=== PATIENT | female | born 1940 | race Caucasian/White ===

== ENCOUNTER 2022-07-13 17:46 | Emergency (ER) | payer MEDICARE, SELFPAY ==
[2022-07-13 18:03] VITALS: BP 137/68; PULSE 79; RESP 16; TEMP 38.4; O2SAT 96; BMI 19.1
--- NOTE | 2022-07-13 21:52 | XRR_ITS ---
PROCEDURE INFORMATION: Exam: XR Chest Exam date and time: 07/13/2022 11:36 PM Age: 81 years old Clinical indication: Fever TECHNIQUE: Imaging protocol: Radiologic exam of the chest. Views: 1 view. COMPARISON: No relevant prior studies available. FINDINGS: Lungs: There is no pulmonary venous congestion. Visualized portions of the lungs are clear. There is a small calcified granuloma at the left apex. There is a small calcified granuloma at the right lung base. Pleural spaces: Unremarkable. No pleural effusion. No pneumothorax. Heart/Mediastinum: Heart is within normal limits of size. Vasculature: There is atherosclerotic calcification of the aortic arch. Bones/joints: Unremarkable. XR/XR chest 1V portable [id number] IMPRESSION: No acute infiltrate.
[2022-07-13] MEDS: acetaminophen 325 mg Tablet 650 MG PO (22:35)
[2022-07-13 22:57] VITALS: BP 133/63; PULSE 76; RESP 17; O2SAT 98
[2022-07-13 23:01] LABS: Basophils % 0.5 %; Eosinophils % 0.2 %; Hematocrit 36.7 % (37.0-47.0); Lymphocytes # 1.3 10^3/uL (0.8-4.8); Lymphocytes % 20.9 %; Mean Corpuscular HGB Conc 32.7 g/dL (30.0-36.0); Mean Corpuscular Hemoglobin 29.6 pg (28.0-34.0); Mean Corpuscular Volume 90.6 fl (81-99); Mean Platelet Volume 9.6 fL (7.4-10.4); Monocytes # 0.7 10^3/uL (0.2-0.9); Monocytes % 11.8 %; Neutrophils # 4.03 10^3/uL (1.8-7.7); Neutrophils % 66.1 %; Nucleated Red Blood Cells % 0 %; Platelet Count 162 10^3/cmm (130-400); Red Blood Count 4.05 10^6/uL (4.1-5.3); Red Cell Distribution Width 14.1 % (12.1-15.1); White Blood Count 6.1 10^3/uL (4.0-10.0)
[2022-07-13 23:17] LABS: SARS Covid-2 Antigen negative (Negative)
[2022-07-13 23:34] LABS: Alanine Aminotransferase 13 U/L (0-33); Albumin Level 3.9 g/dL (3.5-5.2); Alkaline Phosphatase 41 U/L (35-105); Anion Gap 14.8 (5-19); Aspartate Amino Transferase 21 U/L (0-32); Blood Urea Nitrogen 13 mg/dL (8-23); Calcium 8.9 mg/dL (8.5-10.5); Carbon Dioxide 24 mmol/L (22-29); Chloride 97 mmol/L (98-107); Globulin 2.7 g/dL (1.3-4.6); Glucose 84 mg/dL (65-115); Osmolality Calculated 273 mOsm/kg (285-295); Potassium 3.8 mmol/L (3.5-5.1); Sodium 132 mmol/L (136-145); Total Bilirubin 0.2 mg/dL (0.15-1.2); Total Protein 6.6 g/dL (6.6-8.7)
[2022-07-13 23:44] LABS: Add Urine Culture? No; Add Urine Microscopic? YES; Bilirubin Urine Neg (Negative); Blood Urine Neg (Negative); Glucose Urine UA Norm (Normal); Ketones Urine 2+ (Negative); Leukocyte Esterase Urine Negative (Negative); Nitrate Urine Negative (Negative); Protein Urine 1+ (Negative); Specific Gravity, Urine 1.025 (1.005-1.030); Squamous Epithelial Cell Urine 0-4 /hpf (0-5); Urine Appearance Clear (CLEAR); Urine Color Yellow (Yellow); Urobilinogen Urine Neg (Negative); WBC Urine 0-4 /hpf (0-5); pH Urine 5 (5-7)
[2022-07-14] MEDS: doxycycline 100 mg Tablet PO (00:32)
[2022-07-14 00:35] VITALS: BP 104/47; PULSE 88; RESP 17; O2SAT 95
[2022-07-14 02:42] LABS: Adenovirus Not Detected (NOT DETECT); Chlamydia Pneumoniae Not Detected (NOT DETECT); Coronavirus 229E,HKU1,NL63,OC4 Not Detected (NOT DETECT); Human Metapneumovirus Not Detected (NOT DETECT); Human Rhinovirus/Enterovirus Not Detected (NOT DETECT); Influenza A Detected (NOT DETECT); Influenza A H1 Not Detected (NOT DETECT); Influenza A H1-2009 Detected (NOT DETECT); Influenza A H3 Not Detected (NOT DETECT); Influenza B Not Detected (NOT DETECT); Mycoplasma Pneumoniae Not Detected (NOT DETECT); Parainfluenza Virus Type 1 Not Detected (NOT DETECT); Parainfluenza Virus Type 2 Not Detected (NOT DETECT); Parainfluenza Virus Type 3 Not Detected (NOT DETECT); Parainfluenza Virus Type 4 Not Detected (NOT DETECT); Respiratory Syncytial Virus A Not Detected (NOT DETECT); Respiratory Syncytial Virus B Not Detected (NOT DETECT); SARS-COV-2 Not Detected (NOT DETECT)
--- NOTE | 2022-07-14 03:10 | W.ED.FEVER ---
HPI - Fever General: Chief Complaint: Fever Stated Complaint: low grade fever Time Seen by Provider: 07/13/22 22:33 Source: patient and family History of Present Illness: 81-year-old female with a fever starting last 24 hours. It is 101 here. She has a cough, that she noticed last night. She seems to believe the cough is related to waking up choking on my own spit a little bit . No vomiting. No aches. She notes that she feels improved from prior on my exam. MD elicited complaint: fever Onset (ago): hour(s) Context: other Relieving factors: nothing Associated symptoms: Reports cough, nasal congestion, rhinorrhea and short of breath; Deny abdominal pain, flank pain, chills, chest pain, confusion, diarrhea, extremity pain, headache(s), sore throat or vomiting Review of Systems Const: Reports: fever(s); Denies: chills or body aches ENMT: Reports: nasal congestion; Denies: throat pain Card: Denies: chest pain Resp: Reports: non-productive cough; Denies: dyspnea GI: Denies: abdominal pain, vomiting or diarrhea : Denies: flank pain Musc: Denies: extremity pain Neuro: Denies: headache(s) or confusion PFSH ED PFSH: Medical History (Updated 07/14/22 @ 00:10 by Biju Colon DO) Essential (primary) hypertension Family History Sister Cancer 2 sisters; mother, father, 1 brother Other Hypertension Social History Smoking and tobacco status: never smoked Alcohol intake: never Physical Exam Const: COMMON NORMALS: no acute distress GENERAL APPEARANCE: cooperative and frail appearing (Mildly); not ill appearing NUTRITIONAL APPEARANCE: thin HENMT: COMMON NORMALS: normocephalic, atraumatic and Normal external nose present HEAD & SCALP: normocephalic and atraumatic FACE & SINUS: normal facial exam and face symmetric NOSE: Normal external nose present Eye: COMMON NORMALS: Equal, round and reactive pupils present and EOMs intact bilaterally PUPIL: Yes Equal, round and reactive pupils present Neck/C-Spine: GENERAL: Yes trachea midline Chest: CHEST: Yes Symmetrical chest wall rise Resp: COMMON NORMALS: normal respiratory effort, No retractions, No use of accessory muscles and clear to auscultation bilaterally AUSCULTATION: clear to auscultation bilaterally Cardio: COMMON NORMALS: regular rate and regular rhythm RATE: regular rate RHYTHM: regular rhythm HEART SOUNDS: Murmur heart sound present GI: COMMON NORMALS: Normal to inspection, nondistended, normoactive bowel sounds present Extremity: COMMON NORMALS: no pedal edema Neuro: JAMIE COMA SCALE: document GCS findings Jamie coma scale eye opening: Spontaneous Jamie coma scale verbal response: Orientated Jamie coma scale motor response: Obey commands Jamie coma scale total score: 15 SENSORY EXAM: Yes extremities (intact) Psych: COMMON NORMALS: speech normal SPEECH: Yes normal speech Skin: COMMON NORMALS: no rashes or lesions noted GENERAL SKIN EXAM: no rashes or lesions noted Course Vital Signs: Vital signs: Vital Signs Temperature 101.1 F H 07/13/22 18:03 Pulse Rate 88 07/14/22 00:35 Respiratory Rate 17 07/14/22 00:35 Blood Pressure 104/47 07/14/22 00:35 Pulse Oximetry 95 07/14/22 00:35 Oxygen Delivery Me thod 07/13/22 18:03 MDM - Fever Medical Decision Making Clinically the patient looks good. CBC is normal. BMP is not remarkable. Rapid COVID is negative. Chest x-ray shows no acute infiltrate. Urinalysis does not reveal infection. Given her cough, and lack of findings, she will be covered with antibiotics for bronchitis. Close outpatient follow-up. Lab Data : 07/13/22 22:57 07/13/22 22:57 Radiology Impressions Chest X-Ray 07/13/22 21:52 IMPRESSION: No acute infiltrate. Laboratory Results WBC 6.1 10^3/uL (4.0-10.0) 07/13/22 22:57 RBC 4.05 10^6/uL (4.1-5.3) L 07/13/22 22:57 Hgb 12.0 g/dL (11.5-15.3) 07/13/22 22:57 Hct 36.7 % (37.0-47.0) L 07/13/22 22:57 MCV 90.6 fl (81-99) 07/13/22 22:57 MCH 29.6 pg (28.0-34.0) 07/13/22 22:57 MCHC 32.7 g/dL (30.0-36.0) 07/13/22 22:57 RDW 14.1 % (12.1-15.1) 07/13/22 22:57 Plt Count 162 10^3/cmm (130-400) 07/13/22 22:57 MPV 9.6 fL (7.4-10.4) 07/13/22 22:57 Neut % (Auto) 66.1 % 07/13/22 22:57 Lymph % (Auto) 20.9 % 07/13/22 22:57 [place] % (Auto) 11.8 % 07/13/22 22:57 Eos % (Auto) 0.2 % 07/13/22 22:57 Baso % (Auto) 0.5 % 07/13/22 22:57 Neut # (Auto) 4.03 10^3/uL (1.8-7.7) 07/13/22 22:57 Lymph # (Auto) 1.3 10^3/uL (0.8-4.8) 07/13/22 22:57 [place] # (Auto) 0.7 10^3/uL (0.2-0.9) 07/13/22 22:57 Eos # (Auto) 0.0 10^3/uL (0.0-0.8) 07/13/22 22:57 Baso # (Auto) 0.0 10^3/uL (0.0-0.1) 07/13/22 22:57 Nucleated RBC % (auto) 0 % 07/13/22 22:57 Nucleated RBCs # 0.0 /100WBC 07/13/22 22:57 Sodium 132 mmol/L (136-145) L 07/13/22 22:57 Potassium 3.8 mmol/L (3.5-5.1) 07/13/22 22:57 Chloride 97 mmol/L (98-107) L 07/13/22 22:57 Carbon Dioxide 24 mmol/L (22-29) 07/13/22 22:57 Anion Gap 14.8 (5-19) 07/13/22 22:57 BUN 13 mg/dL (8-23) 07/13/22 22:57 Creatinine 0.6 mg/dL (0.5-0.9) 07/13/22 22:57 GFR Calculation Not Reportable 07/13/22 22:57 Glucose 84 mg/dL (65-115) 07/13/22 22:57 Calculated Osmolality 273 mOsm/kg (285-295) L 07/13/22 22:57 Calcium 8.9 mg/dL (8.5-10.5) 07/13/22 22:57 Total Bilirubin 0.2 mg/dL (0.15-1.2) 07/13/22 22:57 AST 21 U/L (0-32) 07/13/22 22:57 ALT 13 U/L (0-33) 07/13/22 22:57 Alkaline Phosphatase 41 U/L (35-105) 07/13/22 22:57 Total Protein 6.6 g/dL (6.6-8.7) 07/13/22 22:57 Albumin 3.9 g/dL (3.5-5.2) 07/13/22 22:57 Globulin 2.7 g/dL (1.3-4.6) 07/13/22 22:57 Urine Color Yellow (Yellow) 07/13/22 23:05 Urine Appearance Clear (CLEAR) 07/13/22 23:05 Urine pH 5 (5-7) 07/13/22 23:05 Ur Specific [place] 1.025 (1.005-1.030) 07/13/22 23:05 Urine Protein 1+ (Negative) H 07/13/22 23:05 Urine Glucose (UA) Norm (Normal) 07/13/22 23:05 Urine Ketones 2+ (Negative) H 07/13/22 23:05 Urine Blood Neg (Negative) 07/13/22 23:05 Urine Nitrate Negative (Negative) 07/13/22 23:05 Urine Bilirubin Neg (Negative) 07/13/22 23:05 Urine Urobilinogen Neg mg/dL (Negative) 07/13/22 23:05 Ur Leukocyte Esterase Negative (Negative) 07/13/22 23:05 Urine RBC None /hpf (0-2) 07/13/22 23:05 Urine WBC 0-4 /hpf (0-5) H 07/13/22 23:05 Ur Squamous Epith Cells 0-4 /hpf (0-5) H 07/13/22 23:05 Amorphous Sediment Not Reportable 07/13/22 23:05 Urine Bacteria None /hpf (NONE) 07/13/22 23:05 SARS-CoV-2 Ag (Rapid) negative (Negative) 07/13/22 19:34 Discharge Plan Discharge Patient Disposition: Home Clinical Impression: Acute febrile illness, Bronchitis Condition: Stable Prescriptions: New doxycycline hyclate 100 mg capsule 100 mg PO BID 7 Days Qty: 14 0RF albuterol sulfate 90 mcg/actuation HFA aerosol inhaler 2 inh INHALATION Q4H PRN (Reason: shortness of breath or wheezing) Qty: 6.7 1RF No Action lisinopril 5 mg tablet 5 mg PO ONCE multivitamin Capsule 1 cap PO QAM Discharge Orders: Discharge ED (Routine); Ordered 07/14/22 Ordered By: Biju Colon Referrals: Antonieta Peck DO [Primary Care Provider] - 1-3 days Patient Instructions: Acute Bronchitis (ED) Activity Restrictions/Additional Instructions: Use the inhaler as needed for cough or shortness of breath. Antibiotics as directed. Return for fever despite 3-4 doses of antibiotics, worsening mental status, lethargy, shortness of breath, any other concerning symptoms. Follow-up with your doctor next week. Call for the results of your viral swab tomorrow as they will be done. Coding Level of Care Code ED Inspector Open Die for Luna Blanco
== END 2022-07-14 00:42 | disposition home or self-care (01) ==
PROVIDERS: Emergency Medicine; Emergency Provider Emergency Medicine; PCP Family Medicine
DX: J40 Bronchitis, not specified as acute or chronic (principal); R50.9 Fever, unspecified; I10 Essential (primary) hypertension; Z20.822 Contact with and (suspected) exposure to COVID-19
CPT/HCPCS: 36415; 71045; 80053; 81001; 85025; 87426; 87486; 87581; 87633; 99284

== ENCOUNTER → 2023-12-17 14:42 | Outpatient (BNVA) | payer BC, SELFPAY | PROVIDERS: PCP Family Medicine; Visit Provider Registered Nurse Neonatal Intensive Care | DX: S99.921A Unspecified injury of right foot, initial encounter (principal); X58.XXXA Exposure to other specified factors, initial encounter; M19.071 Primary osteoarthritis, right ankle and foot | CPT/HCPCS: 73630 ==

== ENCOUNTER 2024-02-10 23:23 | Emergency (ER) | payer BC, MEDICARE, SELFPAY ==
--- NOTE | 2024-02-10 23:28 | ECG_ITS ---
[facility] Test Date: 2024-02-10 Pat Name: Alexandra Farrell Department: Room: Gender: Female Medicine Technologist: : 1940 Requested By: Jann Regalado Order Number: [id number] [place] MD: Aniceto Smith M.D. Measurements Intervals [place] Rate: 73 P: 18 [place]: 180 QRS: -5 QRSD: 89 T: 57 QT: 362 QTc: 401 Interpretive Statements SINUS RHYTHM VOLTAGE CRITERIA FOR LVH [MEETS CRITERIA IN ONE OF: R(aVL), S(V1), R(V5), R(V5/V6)+S(V1)] POSSIBLE ANTERIOR MYOCARDIAL INFARCTION , PROBABLY OLD [30 ms Q WAVE IN V3/V4, OR R < 0.2 mV IN V4] No previous ECG available for comparison Electronically Signed On 02-11-2024 17:21:11 CDT by Aniceto Smith M.D. [email or web address]
[2024-02-10 23:29] VITALS: BP 184/71; PULSE 72; RESP 18; TEMP 36.4; O2SAT 99
--- NOTE | 2024-02-10 23:53 | XRR_ITS ---
PROCEDURE INFORMATION: Exam: XR Chest Exam date and time: 02/11/2024 12:02 AM Age: 83 years old Clinical indication: Other: HTN TECHNIQUE: Imaging protocol: Radiologic exam of the chest. Views: 1 view. COMPARISON: CR XR chest 1V portable [id number] 07/13/2022 11:36 PM FINDINGS: Lungs: Clear, symmetrically inflated lungs. Pleural spaces: No pleural effusion. No pneumothorax. Heart/Mediastinum: Cardiac silhouette is normal in size for technique. Vasculature: Calcified aorta without dilation. Bones/joints: Subjective bony demineralization. No displaced fractures are evident. Lumbar dextroscoliosis is noted. XR/XR chest 1V portable [id number] IMPRESSION: No acute cardiopulmonary abnormality.
--- NOTE | 2024-02-10 23:54 | ED_ITS ---
HPI - Arrhythmia/Palpitations 2 General: Chief Complaint: Arrhythmia/Palpitations Stated Complaint: high bp Time Seen by Provider: 02/10/24 23:25 Source: patient Mode of arrival: ambulatory Limitations: no limitations History of Present Illness: Patient is an 83-year-old female presenting to the emergency department complaining of high blood pressure onset past 4 days. She also notes that she has felt weak and overall dehydrated since then. Her water showed up at her house and she has been spending time outside, which is what makes her think so. She is not having any chest pain or breathing difficulties. She denies any history of strokes or heart attacks. She does states she is diabetic however controlled with diet. Also she is stating that her blood pressure has been high in the past, though regularly it runs 120 systolic over 80s systolic, not currently on any medications. Over the past 4 days she has regularly had systolic readings over 200, and tonight had a reading of 211/96. Further, she is denying any palpitations, urinary symptoms, diaphoresis, nausea, or syncope. Onset (ago): day(s) Duration: intermittent Associated symptoms: Deny nausea or vomiting Review of Systems 2 General: Reports: 10 or more systems reviewed and unremarkable except in HPI and below Const: Denies: fever(s), chills or fatigue Eyes: Denies: change in vision ENMT: Denies: throat pain, ear or mastoid pain or nasal discharge Card: Reports: other (Hypertension); Denies: chest pain, palpitations, swelling of feet/ankles or lightheadedness Resp: Denies: dyspnea, productive cough or wheezing GI: Denies: abdominal pain, nausea, vomiting, diarrhea or constipation : Denies: flank pain, difficulty voiding, dysuria or urinary frequency Musc: Denies: neck pain, back pain or joint pain Skin/Breast: Denies: rash Neuro: Reports: weakness in extremities; Denies: headache(s) or numbness in extremities PFSH ED 2 PFSH: Medical History Essential (primary) hypertension Family History Sister Cancer 2 sisters; mother, father, 1 brother Other Hypertension Social History Smoking and tobacco/nicotine status: never used tobacco/nicotine Alcohol intake: never Substance/Drug Use: never Physical Exam 2 Const: COMMON NORMALS: no acute distress, patient oriented x3 and no limitations GENERAL APPEARANCE: cooperative, comfortable and well developed ORIENTATION/CONSCIOUSNESS: Yes awake, Yes oriented to person, Yes oriented to place and Yes oriented to time HENMT: COMMON NORMALS: normocephalic, atraumatic and hearing grossly normal bilaterally HEAD & SCALP: normocephalic and atraumatic Eye: COMMON NORMALS: Equal, round and reactive pupils present, EOMs intact bilaterally and conjunctivae normal CONJUNCTIVA: Yes conjunctivae normal P UPIL: Yes Equal, round and reactive pupils present Neck/C-Spine: COMMON NORMALS: full ROM, supple and no JVD Resp: COMMON NORMALS: normal respiratory effort, No retractions, No use of accessory muscles and clear to auscultation bilaterally AUSCULTATION: clear to auscultation bilaterally Cardio: COMMON NORMALS: no JVD, regular rate, regular rhythm, No clicks present (Cardio), No murmurs present (Cardio) and No rub (Cardio) RATE: r egular rate RHYTHM: regular rhythm GI: COMMON NORMALS: Normal to inspection, nondistended, normoactive bowel sounds present, Soft to palpation and non-tender AUSCULTATION: Yes normoactive bowel sounds PALPATION: Yes Soft to palpation RECTAL EXAM: d eferred Extremity: COMMON NORMALS: normal to inspection, full ROM and capillary refill normal Neuro: COMMON NORMALS: patient oriented x3, moves all extremities, no focal motor deficits and no sensory deficits noted SENSORIUM/ORIENTATION: Yes oriented to person, Yes oriented to place and Yes oriented to time Psych: COMMON NORMALS: mental status grossly normal and Normal thought process present THOUGHT PROCESS: Normal thought process present Skin: COMMON NORMALS: no rashes or lesions noted GENERAL SKIN EXAM: no rashes or lesions noted Course 2 Vital Signs: Vital signs: Vital Signs Temperature 97.5 F L 02/10/24 23:29 Pulse Rate 68 02/11/24 00:41 Respiratory Rate 16 02/11/24 00:41 Blood Pressure 165/73 02/11/24 00:41 Pulse Oximetry 94 02/11/24 00:41 Oxygen Delivery Me thod Room Air 02/11/24 00:41 MDM - Arrhythmia/Palpitations Medical Decision Making Patient presented for evaluation of high blood pressure that she has been noticing for the past 4 days. Only takes her blood pressure once in the morning. Is not on any medications at all at this time. On arrival her blood pressure was 184/71, however she stated at home it was 211/96. Her physical examination was normal. CBC and CMP unremarkable as she had normal electrolytes and no signs of anemia. Her baseline troponin was negative, and her EKG did not demonstrate any acute ST segment changes as she also had normal sinus rhythm. Urinalysis negative. Chest x-ray did not demonstrate any acute cardiopulmonary abnormalities. I did initially order clonidine to bring down her pressure, however after 30 minutes it had dropped to 145/70 without any intervention. Due to this negative workup, and her scheduled appointment with primary care on , she will be discharged home with instructions to take her blood pressure every 2 hours and average these at the end of the day, as she will report these to primary care. Currently at this time she is also asymptomatic. There are no real clinical or laboratory signs of dehydration, which was her primary concern. I still informed her to increase her fluid intake. Strict return precautions were given. Care of this patient was discussed with supervising ED physician, Dr. Regalado, who agrees with disposition of patient. Lab Data 02/11/24 00:00 02/11/24 00:00 Laboratory Results WBC 7.43 10^3/uL (3.29-11.43) 02/11/24 00:00 RBC 4.58 10^6/uL (3.85-5.65) 02/11/24 00:00 Hgb 13.70 g/dL (11.27-16.99) 02/11/24 00:00 Hct 41.6 % (36-47) 02/11/24 00:00 MCV 90.8 fl (85-98) 02/11/24 00:00 MCH 29.9 pg (27-33) 02/11/24 00:00 MCHC 32.9 g/dL (30-55) 02/11/24 00:00 RDW 13.7 % (12.1-15.1) 02/11/24 00:00 Plt Count 210 10^3/cmm (157-399) 02/11/24 00:00 MPV 9.9 fL (7.4-10.4) 02/11/24 00:00 Neut % (Auto) 54.8 % 02/11/24 00:00 Lymph % (Auto) 34.1 % 02/11/24 00:00 [place] % (Auto) 7.7 % 02/11/24 00:00 Eos % (Auto) 2.4 % 02/11/24 00:00 Baso % (Auto) 0.7 % 02/11/24 00:00 Neut # (Auto) 4.08 10^3/uL (1.8-7.7) 02/11/24 00:00 Lymph # (Auto) 2.5 10^3/uL (0.8-4.8) 02/11/24 00:00 [place] # (Auto) 0.6 10^3/uL (0.2-0.9) 02/11/24 00:00 Eos # (Auto) 0.2 10^3/uL (0.0-0.8) 02/11/24 00:00 Baso # (Auto) 0.1 10^3/uL (0.0-0.1) 02/11/24 00:00 Nucleated RBC % (auto) 0 % 02/11/24 00:00 Nucleated RBCs # 0.0 /100WBC 02/11/24 00:00 Sodium 135 mmol/L (136-145) L 02/11/24 00:00 Potassium 4.1 mmol/L (3.5-5.1) 02/11/24 00:00 Chloride 98 mmol/L (98-107) 02/11/24 00:00 Carbon Dioxide 27 mmol/L (22-29) 02/11/24 00:00 Anion Gap 14.1 (5-19) 02/11/24 00:00 BUN 19 mg/dL (8-23) 02/11/24 00:00 Creatinine 0.7 mg/dL (0.5-0.9) 02/11/24 00:00 GFR Calculation Not Reportable 02/11/24 00:00 Glucose 167 mg/dL (65-115) H 02/11/24 00:00 Calculated Osmolality 286 mOsm/kg (285-295) 02/11/24 00:00 Calcium 9.8 mg/dL (8.5-10.5) 02/11/24 00:00 Total Bilirubin 0.2 mg/dL (0.15-1.2) 02/11/24 00:00 AST 21 U/L (0-32) 02/11/24 00:00 ALT 13 U/L (0-33) 02/11/24 00:00 Alkaline Phosphatase 47 U/L (35-105) 02/11/24 00:00 Troponin T Baseline 10 ng/L (0-10) 02/11/24 00:00 Total Protein 6.6 g/dL (6.6-8.7) 02/11/24 00:00 Albumin 4.2 g/dL (3.5-5.2) 02/11/24 00:00 Globulin 2.4 g/dL (1.3-4.6) 02/11/24 00:00 Urine Color Yellow (Yellow) 02/10/24 23:59 Urine Appearance Clear (CLEAR) 02/10/24 23:59 Urine pH 7 (5-7) 02/10/24 23:59 Ur Specific [place] 1.005 (1.005-1.030) 02/10/24 23:59 Urine Protein Neg (Negative) 02/10/24 23:59 Urine Glucose (UA) Norm (Normal) 02/10/24 23:59 Urine Ketones Negative (Negative) 02/10/24 23:59 Urine Blood Neg (Negative) 02/10/24 23:59 Urine Nitrate Negative (Negative) 02/10/24 23:59 Urine Bilirubin Neg (Negative) 02/10/24 23:59 Urine Urobilinogen Norm mg/dL (Negative) 02/10/24 23:59 Ur Leukocyte Esterase Negative (Negative) 02/10/24 23:59 All radiology interpretation(s) finalized by discharge Discharge Plan Discharge Patient Disposition: Home Clinical Impression: Essential hypertension Condition: Stable Prescriptions: No Action multivitamin Capsule 1 cap PO QAM Discharge Orders: Discharge ED (Routine); Ordered 02/11/24 Ordered By: Edy Moran Discharge Diet: As Directed Discharge Activity: Increase activity as tolerated Patient Instructions: Hypertension (ED) Activity Restrictions/Additional Instructions: Increase her fluid intake. Log your blood pressure every 2 hours as discussed, and report these averages to your primary care on your appointment . If you develop any new or concerning symptoms in the meantime, return for reevaluation. Coding Level of Care Code ED Child Care Attendant for Luna Blanco
[2024-02-11 00:05] LABS: Add Urine Microscopic? NO; Charge for UA Resulting for Rev
[2024-02-11 00:07] LABS: Basophils # 0.1 10^3/uL (0.0-0.1); Basophils % 0.7 %; Eosinophils # 0.2 10^3/uL (0.0-0.8); Eosinophils % 2.4 %; Hematocrit 41.6 % (36-47); Lymphocytes # 2.5 10^3/uL (0.8-4.8); Lymphocytes % 34.1 %; Mean Corpuscular HGB Conc 32.9 g/dL (30-55); Mean Corpuscular Hemoglobin 29.9 pg (27-33); Mean Corpuscular Volume 90.8 fl (85-98); Mean Platelet Volume 9.9 fL (7.4-10.4); Monocytes # 0.6 10^3/uL (0.2-0.9); Monocytes % 7.7 %; Neutrophils # 4.08 10^3/uL (1.8-7.7); Neutrophils % 54.8 %; Nucleated Red Blood Cells % 0 %; Platelet Count 210 10^3/cmm (157-399); Red Blood Count 4.58 10^6/uL (3.85-5.65); Red Cell Distribution Width 13.7 % (12.1-15.1); White Blood Count 7.43 10^3/uL (3.29-11.43)
[2024-02-11 00:13] LABS: Bilirubin Urine Neg (Negative); Blood Urine Neg (Negative); Glucose Urine UA Norm (Normal); Ketones Urine Negative (Negative); Leukocyte Esterase Urine Negative (Negative); Nitrate Urine Negative (Negative); Protein Urine Neg (Negative); Specific Gravity, Urine 1.005 (1.005-1.030); Urine Appearance Clear (CLEAR); Urine Color Yellow (Yellow); Urobilinogen Urine Norm (Negative); pH Urine 7 (5-7)
[2024-02-11 00:21] VITALS: BP 196/74; PULSE 65; RESP 13; O2SAT 94
[2024-02-11 00:24] LABS: Troponin(5th) Baseline 10 ng/L (0-10)
[2024-02-11 00:25] LABS: Alanine Aminotransferase 13 U/L (0-33); Albumin Level 4.2 g/dL (3.5-5.2); Alkaline Phosphatase 47 U/L (35-105); Anion Gap 14.1 (5-19); Aspartate Amino Transferase 21 U/L (0-32); Blood Urea Nitrogen 19 mg/dL (8-23); Calcium 9.8 mg/dL (8.5-10.5); Carbon Dioxide 27 mmol/L (22-29); Chloride 98 mmol/L (98-107); Creatinine Clr Calc Pharmacy 50.8903; Globulin 2.4 g/dL (1.3-4.6); Glucose 167 mg/dL (65-115); Osmolality Calculated 286 mOsm/kg (285-295); Potassium 4.1 mmol/L (3.5-5.1); Sodium 135 mmol/L (136-145); Total Bilirubin 0.2 mg/dL (0.15-1.2); Total Protein 6.6 g/dL (6.6-8.7)
[2024-02-11 00:41] VITALS: BP 165/73; PULSE 68; RESP 16; O2SAT 94
[2024-02-11 00:49] VITALS: BP 165/75
[2024-02-11 00:56] VITALS: PULSE 74; RESP 14; O2SAT 94
== END 2024-02-11 00:54 | disposition home or self-care (01) ==
PROVIDERS: Emergency Provider Physician Assistant
DX: I10 Essential (primary) hypertension (principal)
CPT/HCPCS: 71045; 80053; 81003; 84484; 85025; 93005; 99285